=== PATIENT | male | born 1960 | race Caucasian/White ===

== ENCOUNTER → 2018-12-27 | Outpatient (CLI) | payer OTHER ==
[~2018-12-27] MED LIST: CEPH500 PO; FAMO20 PO; HYDACE5 PO; SELE1SH TOP; [UNRECOGNIZED DRUG - REMARK]
[2018-12-27 17:50] LABS: BASOPHILS ABSOLUTE AUTO 0.06 K/mm3 (0.00-0.23); BASOPHILS PERCENT AUTO 1 % (0-2); EOSINOPHILS ABSOLUTE AUTO 0.09 K/mm3 (0.00-0.68); EOSINOPHILS PERCENT AUTO 1 % (0-6); Hematocrit 46.9 % (37.0-53.0); Hemoglobin 16.3 g/dL (13.5-17.5); IMMATURE GRAN ABSOLUTE AUTO 0.02 K/mm3 (0.00-0.10); IMMATURE GRAN PERCENT AUTO 0 % (0-1); LYMPHOCYTES ABSOLUTE AUTO 2.06 K/mm3 (0.84-5.20); LYMPHOCYTES PERCENT AUTO 24 % (21-46); MONOCYTES ABSOLUTE AUTO 0.65 K/mm3 (0.16-1.47); MONOCYTES PERCENT AUTO 8 % (4-13); Mean Corpuscular HGB 30.6 pg (26.0-34.0); Mean Corpuscular HGB Conc 34.8 g/dL (31.5-36.5); Mean Corpuscular Volume 88 fL (80-100); Mean Platelet Volume 12.6 fL (9.1-12.4); NEUTROPHILS ABSOLUTE AUTO 5.63 K/mm3 (1.96-9.15); NEUTROPHILS PERCENT AUTO 66 % (41-73); Platelet Count 230 K/mm3 (150-400); RDW Coefficient Variation 12.1 % (11.7-14.2); RDW Standard Deviation 39.2 fL (35.1-46.3); Red Blood Cell Count 5.32 M/mm3 (4.30-5.90); White Blood Cell Count 8.51 K/mm3 (4.00-11.30)
[2018-12-27 18:17] LABS: Alanine Aminotransfer (ALT/SGP 63 U/L (12-78); Albumin, Blood 4.5 g/dL (3.4-5.0); Albumin/Globulin Ratio 1.3 (0.8-1.8); Alk Phos 75 U/L (50-136); Anion Gap 8 mmol/L (6-16); Aspartate Aminotrans (AST/SGOT 30 U/L (12-37); Bilirubin, Total 0.7 mg/dL (0.1-1.0); Blood Urea Nitrogen 16 mg/dL (8-24); CO2, Blood 25 mmol/L (21-32); Calcium, Blood 9.4 mg/dL (8.5-10.1); Chloride, Blood 105 mmol/L (98-108); Creatinine, Blood 1.14 mg/dL (0.60-1.20); Globulin, Blood 3.5 g/dL (2.2-4.0); Glomerular Filtration Rate >60 (60-); Glucose, Blood 85 mg/dL (70-99); Potassium, Blood 3.6 mmol/L (3.5-5.5); Sodium, Blood 138 mmol/L (136-145)
== END ==
LOC: LAB SHORT 17:18 → LAB 17:18
PROVIDERS: Nurse Practitioner
DX: R10.9 Unspecified abdominal pain (principal); R19.7 Diarrhea, unspecified
CPT/HCPCS: 80053; 85025; 85651

== ENCOUNTER 2019-01-31 11:28 | Day surgery (SDC) | payer OTHER ==
[~2019-01-31] VITALS: Ht 175.3 cm; Wt 99.4 kg
[~2019-01-31 11:28] MED LIST changes: +EPIPEN 2-P0.3 MG/0.3 IM
== END 2019-01-31 13:32 | disposition home or self-care (01) ==
LOC: ORSCSDS 11:28
PROVIDERS: Internal Medicine Gastroenterology
PROC: 0DBE8ZX Excision of Large Intestine, Via Natural or Artificial Opening Endoscopic, Diagnostic (ICD-10-PCS; principal; 2019-01-31 13:00)
PROC: 0DBK8ZX Excision of Ascending Colon, Via Natural or Artificial Opening Endoscopic, Diagnostic (ICD-10-PCS; principal; 2019-01-31 13:00)
DX: K92.1 Melena (principal); R10.9 Unspecified abdominal pain; D12.4 Benign neoplasm of descending colon; K52.9 Noninfective gastroenteritis and colitis, unspecified; K57.30 Diverticulosis of large intestine without perforation or abscess without bleeding; R19.4 Change in bowel habit; R93.89 Abnormal findings on diagnostic imaging of other specified body structures; F17.210 Nicotine dependence, cigarettes, uncomplicated; E66.9 Obesity, unspecified; Z68.33 Body mass index [BMI] 33.0-33.9, adult; Z79.899 Other long term (current) drug therapy
CPT/HCPCS: 88305; J2704; J7120

== ENCOUNTER 2025-07-03 14:32 | Emergency (ER) | payer OTHER ==
[~2025-07-03] VITALS: Ht 175.3 cm; Wt 99.8 kg
[~2025-07-03 14:32] MED LIST changes: +Cipro500 MG PO; +Flagyl500 MG PO; +Norco 5-325 Ta1 EACH PO; +ONDA4ODT MM
[2025-07-03] MEDS ORDERED: NS 1,000 ML IV SCH (15:30)
[2025-07-03] MEDS ORDERED: Morphine Sulfate 4 MG/1 ML Injection IV ONE (15:30)
[2025-07-03] MEDS ORDERED: HYDROmorphone HCl/Pf 1MG SYR IV ONE (17:10)
[2025-07-03 17:30] VITALS: BP 160/87
[2025-07-03 18:14] LABS: BASOPHILS ABSOLUTE AUTO 0.07 K/mm3 (0.00-0.23); BASOPHILS PERCENT AUTO 1 % (0-2); EOSINOPHILS ABSOLUTE AUTO 0.06 K/mm3 (0.00-0.68); EOSINOPHILS PERCENT AUTO 1 % (0-6); Hematocrit 39.6 % (37.0-53.0); Hemoglobin 13.8 g/dL (13.5-17.5); IMMATURE GRAN ABSOLUTE AUTO 0.03 K/mm3 (0.00-0.10); IMMATURE GRAN PERCENT AUTO 0 % (0-1); LYMPHOCYTES ABSOLUTE AUTO 1.75 K/mm3 (0.84-5.20); LYMPHOCYTES PERCENT AUTO 15 % (21-46); MONOCYTES ABSOLUTE AUTO 0.82 K/mm3 (0.16-1.47); MONOCYTES PERCENT AUTO 7 % (4-13); Mean Corpuscular HGB Conc 34.8 g/dL (31.5-36.5); Mean Corpuscular Volume 88 fL (80-100); NEUTROPHILS ABSOLUTE AUTO 8.80 K/mm3 (1.96-9.15); NEUTROPHILS PERCENT AUTO 76 % (41-73); NRBC ABSOLUTE 0.00 K/mm3 (0.00-0.02); NRBC Auto 0.0 /100 WBC (0.0-0.2); Platelet Count 211 K/mm3 (150-400); RDW Coefficient Variation 12.6 % (11.7-14.2); RDW Standard Deviation 40.9 fL (35.1-46.3)
[2025-07-03 18:38] LABS: Alanine Aminotransfer (ALT/SGP 53.0 U/L (12-78); Albumin, Blood 3.9 g/dL (3.4-5.0); Albumin/Globulin Ratio 1.3 (0.8-1.8); Anion Gap 7.0 mmol/L (3-11); Aspartate Aminotrans (AST/SGOT 37.0 U/L (12-37); Bilirubin, Total 0.6 mg/dL (0.1-1.0); Blood Urea Nitrogen 15.0 mg/dL (8-24); CO2, Blood 26.0 mmol/L (21-32); Calcium, Blood 9.3 mg/dL (8.5-10.1); Chloride, Blood 108.0 mmol/L (98-108); Creatinine, Blood 1.07 mg/dL (0.60-1.20); Globulin, Blood 2.9 g/dL (2.2-4.0); Glucose, Blood 91.0 mg/dL (70-99); Potassium, Blood 4.2 mmol/L (3.5-5.5); Sodium, Blood 137.0 mmol/L (136-145); Total Protein, Blood 6.8 g/dL (6.4-8.2)
[2025-07-03] MEDS ORDERED: OXAYDO5 M2 PO (19:24)
[2025-07-03] MEDS ORDERED: RX Prepack 6 Tabs Oxycodone 5mg UD ONE (19:30)
== END 2025-07-03 19:24 | disposition home or self-care (01) ==
LOC: ER 14:32
PROVIDERS: Student in an Organized Health Care Education/Training Program
DX: M79.604 Pain in right leg (principal); X50.1XXA Overexertion from prolonged static or awkward postures, initial encounter; I10 Essential (primary) hypertension; Z79.899 Other long term (current) drug therapy
CPT/HCPCS: 73502; 73552; 73560-RT; 80053; 85025; 96374; 96375; 99284-25; A9270; J1171; J2270; J7030

== ENCOUNTER 2025-07-12 09:53 | Day surgery (SDC) | payer OTHER ==
[~2025-07-12] VITALS: Ht 172.7 cm; Wt 105.0 kg
[2025-07-12] VITALS (11 sets, daily range): BP systolic 93–168; BP diastolic 55–102
[~2025-07-12 09:53] MED LIST changes: +Bupivacaine 0.5% W/EPI 1:200000 SDV 30 ML Vial ONE; +CLAR500 PO; +FentaNYL Citrate 50 MCG/ML 2 ML Injection ONE; +LOSA50 PO; +OXAYDO5 M1 PO; +OXAYDO5 M2 PO; +Ondansetron Odt8 MG MM; +PRED20 PO
[2025-07-12] MEDS ORDERED: Tranexamic Acid 100 ML IV SCH (10:05)
[2025-07-12] MEDS ORDERED: CeFAZolin Sodium 2,000 MG in NS 100 ML IV SCH (10:05)
[2025-07-12] MEDS ORDERED: Tranexamic Acid 100 ML IV ONE (10:10)
[2025-07-12] MEDS ORDERED: Ropivacaine 0.5% HCL/PF 5 MG/ML 30ML Vial ONE (10:14)
[2025-07-12] MEDS ORDERED: Albuterol 2.5 MG/3 ML VIAL INH PRN ×2 (10:15→13:10)
[2025-07-12] MEDS ORDERED: FentaNYL Citrate 50 MCG/ML 2 ML Injection IV PRN ×4 (10:15→13:10)
[2025-07-12] MEDS ORDERED: Dexamethasone Sod Phos 10 MG/ML 1ML VIAL ONE (10:18)
[2025-07-12] MEDS ORDERED: Ondansetron HCl 2 MG / ML 2ML Vial IV PRN ×2 (10:20→13:10)
[2025-07-12] MEDS ORDERED: HYDROmorphone HCl/Pf 1MG SYR IV PRN ×2 (10:20→13:10)
--- NOTE | 2025-07-12 10:37 | NUR ---
Pre-Op teaching done. Pt verbalizes understanding. Ambulatory in Day Surgery. History, Chart, Medications and Allergies reviewed before start of procedure. Patient confirms NPO status and agrees with scheduled surgery. Patient States Post-Procedure ride home has been arranged.
[2025-07-12] MEDS ORDERED: CeFAZolin Sodium 2,000 MG VIAL ONE (10:52)
--- NOTE | 2025-07-12 11:46 | NUR ---
FEMORAL NERVE BLOCK DONE BY GARTH WITH ANESTHESIA. PT PLACED ON 2L O2 VIA NC. O2 SATS MONITORED T/O. 1125: TIME OUT COMPLETED. 1134: NERVE BLOCK STARTED. 1138: NERVE BLOCK COMPLETED. PATIENT TOLERATED WILL.
--- NOTE | 2025-07-12 15:23 | NUR ---
TO STEP POST PROCEDURE. NO PAIN AT THIS TIME, BLOCK WORKING WELL. PALP PEDAL PULSE, RIGHT LEG WRAPPED WITH FEMI/IMMOBILIZER IN PLACE. CDI. BOB PO WELL. DENIES NAUSEA, SOB. VERBALIZED UNDERSTANDING OF DC INSTRUCTIONS, WOUND CARE, FOLLOW UP, MEDICATIONS. PT WBAT WITH BRACE, VERIFIED WITH DR. NIEVES. AMBULATED WITH CRUTCHES/STANDBY ASSIST. DRESSED AND AMBULATED TO CAR WITH RN/FAMILY TO ASSIST. DC'D TO PRIVATE CAR WITH BELONGINGS. POLAR PACK SUPPLIED TO PT.
== END 2025-07-12 15:00 | disposition home or self-care (01) ==
LOC: ORSCMMR 09:53 → ORD 10:30 → ORSCMMR 10:30
PROVIDERS: Orthopaedic Surgery Sports Medicine
PROC: 0LQL0ZZ Repair Right Upper Leg Tendon, Open Approach (ICD-10-PCS; principal; 2025-07-12 11:00)
DX: S76.111A Strain of right quadriceps muscle, fascia and tendon, initial encounter (principal); I10 Essential (primary) hypertension; E66.9 Obesity, unspecified; Z68.35 Body mass index [BMI] 35.0-35.9, adult; Z79.899 Other long term (current) drug therapy; F17.290 Nicotine dependence, other tobacco product, uncomplicated
CPT/HCPCS: C1713; J0690; J1100; J2704; J2795; J3010; J7120

== ENCOUNTER 2025-07-16 10:37 | Day surgery (SDC) | payer OTHER ==
[~2025-07-16] VITALS: Ht 175.3 cm; Wt 103.5 kg
[~2025-07-16 10:37] MED LIST changes: -Bupivacaine 0.5% W/EPI 1:200000 SDV 30 ML Vial ONE; +EPINEPhrine HCl 1 MG / ML 30ML Vial ONE; -FentaNYL Citrate 50 MCG/ML 2 ML Injection ONE; +Lidocaine 2%-Epineph 1:200000 20 ML SDV ONE
[2025-07-16] MEDS ORDERED: Tranexamic Acid 100 ML IV ONE ×2 (10:51→16:31)
[2025-07-16] MEDS ORDERED: FentaNYL Citrate 50 MCG/ML 2 ML Injection ONE ×3 (11:43→16:18)
[2025-07-16] MEDS ORDERED: Lidocaine HCl 2% Jelly 120MG/6ML SYR (20MG PER ML) ONE (11:45)
[2025-07-16] MEDS ORDERED: Rocuronium Bromide 10 MG/ML 5ML Injection IV ONE ×3 (11:45→15:14)
[2025-07-16] MEDS ORDERED: Lidocaine 2%-Epineph 1:200000 20 ML SDV ONE ×2 (12:36→15:09)
[2025-07-16] MEDS ORDERED: Midazolam HCl 1MG / ML 2ML Vial ONE (12:41)
[2025-07-16] MEDS ORDERED: Dexamethasone Sod Phos 10 MG/ML 1ML VIAL ONE ×2 (13:07→15:04)
[2025-07-16] MEDS ORDERED: Ondansetron HCl 2 MG / ML 2ML Vial ONE (13:07)
[2025-07-16] MEDS ORDERED: Phenylephrine HCl 100 MCG/ML-NS 10MLSYR (1MG/10ML) ONE (13:14)
[2025-07-16] MEDS ORDERED: ePHEDrine Sulfate 50 MG/ML 1ML Injection ONE (13:16)
[2025-07-16] MEDS ORDERED: Sugammadex Sodium 200 MG/2ML SDV (100 MG/ML) ONE (14:25)
[2025-07-16] MEDS ORDERED: [UNRECOGNIZED DRUG - OTHER] IV SCH (15:10)
[2025-07-16] MEDS ORDERED: MANNITOL IV SCH (15:10)
[2025-07-16] MEDS ORDERED: Labetalol HCL 5 MG/ML 4ML Injection (Single Dose) ONE (15:36)
[2025-07-16] MEDS ORDERED: Lidocaine 2%-Epineph 1:200000 20 ML SDV INJ ONE (15:40)
[2025-07-16] MEDS ORDERED: Brimonidine Tartrate 0.2% Opth 5 ml ONE (15:42)
[2025-07-16] MEDS ORDERED: Timolol 0.5% Opth Soln 5 ML ONE (15:43)
[2025-07-16] MEDS ORDERED: Tetracaine HCl 0.5% Opth Soln 15 ml LEFTEYE ONE (15:45)
[2025-07-16] MEDS ORDERED: Tetracaine HCl/Pf 0.5% Opth Soln 4 ml ONE (15:51)
[2025-07-16] MEDS ORDERED: Erythromycin 0.5% Opth Oint 1 gm ONE (15:56)
--- NOTE | 2025-07-16 16:22 | NUR ---
07/16/25 1622 Margarita Centeno AFTER EXTUBATION, OCCULAR SWELLING NOTED. DR FLORES WAS NOTIFIED, AND PROMPTLY CONSULTED WITH DR. CARLOS. OCCULAR PRESSURE WAS MEASURED AND ADDRESSED, WITH DR CARLOS COMING IN TO ASSIST WITH OCCULAR SWELLING AND PRESSURE. PATIENT WAS BROUGHT TO PACU AFTER OCCULAR PRESSURE WAS WITHIN RANGE PER DR CARLOS AND DR FLORES.
[2025-07-16 17:53] VITALS: BP 165/89
--- NOTE | 2025-07-16 18:47 | NUR ---
07/16/25 1847 USMAN LIGHT BRIMONIDINE DROPS & TIMOLOL DROPS GIVEN TO LEFT EYE EVERY 10 MIN. IN STEP DOWN UNTIL PT DISCHARGED PER DR ORDERS: OR NURSE STARTED THEM @ 1544 IN OR AND CONTINUED EVERY 10 MINS. 1554 1604 1614 1624 1634 1638 1648 1653 1707 1718 1728 1740 1750 1755 ERYTHROMYACIN OINTMENT TO LEFT EYE PRIOR TO DC PER ORDERS. PT UP TO VOID URINE 700ML 2 X PT WAS W/O PAIN AND DRIP PAD CHANGED 3 X WITH MINIMAL LITE RED BLOOD NOT SOAKED THROUGH. VITALS WERE STABLE AND PT ATE CHEESE AND DRANK FLUIDS PRIOR TO DC.
== END 2025-07-16 18:22 | disposition home or self-care (01) ==
LOC: ORSCSDS 10:37
PROVIDERS: Otolaryngology
PROC: 09DV4ZZ Extraction of Left Ethmoid Sinus, Percutaneous Endoscopic Approach (ICD-10-PCS; principal; 2025-07-16 12:00)
PROC: 09SM0ZZ Reposition Nasal Septum, Open Approach (ICD-10-PCS; principal; 2025-07-16 12:00)
PROC: 09DU4ZZ Extraction of Right Ethmoid Sinus, Percutaneous Endoscopic Approach (ICD-10-PCS; principal; 2025-07-16 12:00)
PROC: 099R8ZZ Drainage of Left Maxillary Sinus, Via Natural or Artificial Opening Endoscopic (ICD-10-PCS; principal; 2025-07-16 12:00)
DX: J32.8 Other chronic sinusitis (principal); J34.2 Deviated nasal septum; I10 Essential (primary) hypertension; K21.9 Gastro-esophageal reflux disease without esophagitis; Z79.899 Other long term (current) drug therapy
CPT/HCPCS: 88305; 88311; A9270; C2625; J0165; J1100; J1120; J2150; J2250; J2371; J2405; J2704; J3010; J7120